=== PATIENT | female | born 1935 | race Caucasian/White ===

== ENCOUNTER 2022-07-11 15:27 | Inpatient (IN) ==
--- NOTE | 2022-07-11 15:32 | Emergency Department Note ---
Back Pain HPI General Chief Complaint: Back Pain/Injury Stated Complaint: lower back pain Time Seen by Provider: 07/11/22 15:30 Limitations: physical limitation History of Present Illness HPI Narrative: Narrative: Patient is an 87-year-old female with history of chronic low back pain and follows up with [facility] and sees Dr. Monsivais. 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 Dr. Monsivais had called the emergency department and spoke with Dr. Miller today indicating that patient is having worsening pain and would like patient evaluated in the emergency department regarding pain management. He would like to consider an MRI with the patient but is not able to obtain this until tomorro w. Patient had been recently hospitalized at [facility] at the [facility] on June 17, 2022 and discharged on June 22, 2022. Patient was admitted for acute kidney injury with creatinine initially as high as 8.54 and then reduced down to 4.07 and on day of discharge was at 3.50. She was also found to be significantly anemic and received 2 units of RBCs. She was started on Protonix for upper GI bleed. Patient had a fentanyl patch applied was used at the hospital and this was helping with her pain until last few days she reports that her pain is very severe and she rates her pain 10 out of 10 on 0-10 numerical pain scale. She has tried taking pain medication at home but has not had much relief. She denies any weakness, saddle anesthesia, or loss of control of bowel or bladder. She has had some occasional radiculopathy following the L3 and L4 dermatome on the left side. Related Data Home Medications Medication Instructions Recorded Confirmed acetaminophen 325 mg capsule 650 mg PO TID 07/11/22 07/12/22 cholecalciferol (vitamin D3) 125 125 mcg PO QDAY 07/11/22 07/12/22 mcg (5,000 unit) capsule (Dialyvite Vitamin D) fentanyl 12 mcg/hr transdermal 1 patch topical Q3D 07/11/22 07/12/22 patch furosemide 20 mg tablet 20 mg PO QDAY 07/11/22 07/11/22 levothyroxine 88 mcg tablet 88 mcg PO QDAY 07/11/22 07/12/22 oxybutynin chloride 5 mg 5 mg PO QDAY 05/08/23 05/09/23 tablet,extended release 24 hr tizanidine 2 mg tablet 2 mg PO TIDP PRN Spasms 07/11/22 07/12/22 zolpidem 5 mg tablet 5 mg PO HSP PRN Sleep 07/11/22 07/12/22 Previous Rx's Medication Instructions Recorded methocarbamol 500 mg tablet 500 mg PO .Q4-6 hr PRN muscle 07/12/22 spasm #40 tabs Allergies Allergy/AdvReac Type Severity Reaction Status Date / Time Sulfa (Sulfonamide Allergy Unknown Hives Verified 07/11/22 20:39 Antibiotics) Calcitonin [From Miacalcin] AdvReac Unknown Unknown Verified 07/11/22 20:39 hydrocodone AdvReac Unknown Unknown Verified 07/11/22 20:39 methocarbamol [From Robaxin] AdvReac Unknown Unknown Verified 07/11/22 20:39 Review of Systems ROS ROS Narrative: Narrative: All systems ED: reviewed and negative except as stated. PFS Narrative Patient History Narrative: Narrative: Medical/Surgical/Family History All Active Problems (Updated 07/12/22 @ 17:59 by Byron Irvin DNP) Age-related osteoporosis with current pathological fracture (Chronic) Other low back pain (Chronic) Pain in thoracic spine (Chronic) Radiculopathy, lumbar region (Chronic) Radiculopathy, thoracic region (Chronic) Medical History (Updated 07/12/22 @ 17:59 by Byron Irvin DNP) Age-related osteoporosis with current pathological fracture Other low back pain Pain in thoracic spine Radiculopathy, lumbar region Radiculopathy, thoracic region Surgical History (Updated 03/17/21 @ 09:14 by Sruthi Lanier) History of surgery 10/22 Vertebroplasty T10, T11 w/sed 10/11/1809/21 TESI #1 T8-9 w/sed 09/24/1809/21 LESI #1 L3-4 w/sed 09/05/1809/21 Vertebroplasty T9 w/sed 09/05/18 Family History (Updated 03/17/21 @ 09:14 by Sruthi Lanier) Other No pertinent family history Exam Narrative Narrative: Narrative: General Limitations: physical limitation General appearance: Present alert and grimacing Head Head: Present normal inspection Eye Eye: Present normal appearance; Absent scleral icterus ENT ENT: Present mucous membranes moist Neck Neck: Absent lymphadenopathy Chest Chest: Present symmetric chest wall rise Respiratory Respiratory: Present normal lung sounds bilaterally; Absent respiratory distress, rales/crackles or accessory muscle use Cardiovascular Cardiovascular: Present regular rate, normal rhythm and normal heart sounds Extremities Extremities: Present normal inspection, full ROM and normal capillary refill; Absent cyanosis Back Back: Present other (Tenderness with palpation of lumbar spine from L2-L4 area.); Absent rashes Neurological Neurological: Present alert, oriented X3 and CN II-XII intact; Absent motor sensory deficit Skin Skin: Present warm (WNL), dry and normal color Course Vital Signs Vital signs: Vital Signs Temperature 97.2 F 07/11/22 15:31 Pulse Rate 88 07/11/22 15:31 Respiratory Rate 16 07/11/22 15:31 Blood Pressure 158/66 07/11/22 15:31 Pulse Oximetry (%) 99 07/11/22 15:31 Oxygen Delivery Method Room Air 07/11/22 15:31 Temperature 97.5 F 07/12/22 12:55 Pulse Rate 67 07/12/22 12:55 Respiratory Rate 18 07/12/22 12:55 Blood Pressure 113/74 07/12/22 12:55 Pulse Oximetry (%) 94 07/12/22 12:55 Oxygen Delivery Method Room Air 07/12/22 12:55 MDM MDM Narrative Medical decision making narrative: Narrative: Patient is an 87-year-old female who came into the emergency department today for pain management of multiple compression fractures and has been having intractable pain. Today she received IV Tylenol, and IV fentanyl for pain management. Was able to speak with Dr. Monsivais today and he would plan on ta rosita the patient to the OR tomorrow for vertebroplasty pending MRI. MRI was ordered today for this patient given her intractable pain and history of multiple compression fracture. Patient's MRI shows: IMPRESSION: 1. Mild acute L3 compression fracture with 20% loss vertebral height. Chronic compression fractures at T11 T12 L1 and L2 L4 L5 and are unchanged. 2. Scattered low signal foci in the vertebral bodies which are new since 2021. These could represent metastases or multiple myeloma. Please correlate with SPEP UPEP and consider bone scan 3. Multilevel degeneration resulting in central canal, lateral recess IV foraminal narrowing without nerve root impingement. I was able to speak with Dr. Cortes today who is on today for hospitalist. He agreed to accept patient for hospital admission for pain management and observation. Patient was given 2 doses of IV fentanyl and 1000 mg of IV acetaminophen for pain management today. This helped reduce her pain to a 5 out of 10, but patient's pain is very excruciating with any mobility, movement, or ambulation. I feel this patient would benefit from hospital admission for pain management control and could also follow-up early in the morning with Dr. Monsivais for further evaluation of patient's compression fracture. Lab Data Lab results reviewed: Yes I reviewed the patient's lab results. 07/12/22 05:31 07/12/22 05:31 Labs: Lab Results 07/11/22 07/11/22 Range/Units 17:38 17:41 WBC 10.2 (4.5-11.0) K/mcL RBC 3.45 L (3.59-5.38) M/mcL Hgb 10.4 L (11.2-15.7) g/dL Hct 31.9 L (34.1-44.9) % POC Hct 30.0 L (36-48) MCV 92.5 (80.0-100.0) fL MCH 30.1 (26.0-34.0) pg MCHC 32.6 (31.0-36.0) g/dL RDW 15.5 H (11.5-14.5) % Plt Count 101 L (140-440) K/mcL MPV 10.6 (8.8-12.5) fL Immature Gran % (Auto) 6.2 H (0.0-0.5) % Neut % (Auto) 59.8 (38.0-78.0) % Lymph % (Auto) 19.5 (15.5-49.0) % [place] % (Auto) 14.0 H (1.0-12.0) % Eos % (Auto) 0.3 (0.0-7.0) % Baso % (Auto) 0.2 (0.0-2.0) % Lymph # (Auto) 1.98 (1.50-4.80) K/mcL [place] # (Auto) 1.42 H (0.10-0.90) K/mcL Eos # (Auto) 0.03 (0.00-0.70) K/mcL Baso # (Auto) 0.02 (0.00-0.30) K/mcL Immature Gran # 0.63 H (0.00-0.05) K/mcl Absolute Neutrophils 6.08 (1.80-8.00) K/mcL POC Sodium 138 (133-145) POC Potassium 3.3 (3.3-5.1) POC Chloride 97 (96-108) POC Total CO2 27.0 (22-30) POC BUN 52 H (6-20) POC Creatinine 1.8 H (0.6-1.2) POC Glucose 107 H (70-105) POC WB Ioniz Calcium 1.29 (1.16-1.32) Radiology Data Radiology results reviewed: Yes I reviewed the patient's radiology results. Radiology results narrative: Ordering Physician:Byron Irvin DNP Date of Service:07/11/22 Procedure(s):MR lumbar spine wo con CLINICAL INFORMATION: Low back and left radicular pain. History of vertebroplasty COMPARISON: Lumbar MRI 09/03/2018 and 03/30/2021 TECHNIQUE: Sagittal T1 FLAIR, STIR, fast spin echo T2, axial T2 weighted images were acquired. 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 Mild acute L3 compression fracture with edema throughout the vertebral body 20% loss of height since the previous exam. Moderate chronic T11, mild chronic T12, minimal chronic L1, mild chronic compression fractures again noted. Leg. There are scattered low-attenuation foci throughout the lumbar vertebral bodies ranging up to 8 mm in the anterior L2 vertebral body. These were not seen on the 2019 exam could represent metastases or multiple myeloma. Conus medullaris ends at T12 homogeneous signal. Cauda equina roots are normal. No significant soft tissue abnormalities. The T12-L1 disc level is normal. At L1-2 mild broad disc protrusion with left-sided asymmetry facet arthropathy results in mild central canal and moderate left IV foraminal narrowing. There is exiting left L1 nerve root impingement. At L2-3, mild broad disc protrusion and facet arthropathy result in moderate central canal and moderate bilateral IV foraminal narrowing. There is exiting L2 nerve root impingement At L3-4, moderate broad disc protrusion facet arthropathy result in severe central canal right lateral recess and right IV foraminal narrowing. There is moderate left lateral recess and left IV foraminal narrowing. There is impingement of the exiting L3 and descending L4 nerve roots. This has worsened At L4-5, mild broad disc protrusion associated spurring and facet arthropathy result in moderate bilateral IV foraminal narrowing at mild central canal narrowing. This is progressed At L5-S1 clinical mild broad disc protrusion facet arthropathy result in moderate right and mild left IV foraminal narrowing with exiting right L5 nerve root impingement. IMPRESSION: 1. Mild acute L3 compression fracture with 20% loss vertebral height. Chronic compression fractures at T11 T12 L1 and L2 L4 L5 and are unchanged. 2. Scattered low signal foci in the vertebral bodies which are new since 2021. These could represent metastases or multiple myeloma. Please correlate with SPEP UPEP and consider bone scan 3. Multilevel degeneration resulting in central canal, lateral recess IV foraminal narrowing without nerve root impingement. Interpreted and Authenticated by: David Vazquez 07/11/22 Discharge Plan Patient/Caregiver Discharge Instructions Pt seen by POCKET BUILDER/PA only: No Clinical Impression: Other low back pain Activity: increase activity as tolerated Patient Disposition: Xfer As Outpt/Obs ([facility]) Discharge Date/Time: 07/11/22 20:08
[2022-07-11] MEDS ORDERED: fentaNYL 100 MCG/2 ML VIAL IV PRN ×2 (16:09→16:41)
[2022-07-11] MEDS ORDERED: ACETAMINOPHEN 1,000 MG/100 ML BAG IV ONE (16:51)
--- NOTE | 2022-07-11 17:38 | Magnetic Resonance Report ---
CLINICAL INFORMATION: Low back and left radicular pain. History of vertebroplasty COMPARISON: Lumbar MRI 09/03/2018 and 03/30/2021 TECHNIQUE: Sagittal T1 FLAIR, STIR, fast spin echo T2, axial T2 weighted images were acquired. 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 Mild acute L3 compression fracture with edema throughout the vertebral body 20% loss of height since the previous exam. Moderate chronic T11, mild chronic T12, minimal chronic L1, mild chronic compression fractures again noted. Leg. There are scattered low-attenuation foci throughout the lumbar vertebral bodies ranging up to 8 mm in the anterior L2 vertebral body. These were not seen on the 2019 exam could represent metastases or multiple myeloma. Conus medullaris ends at T12 homogeneous signal. Cauda equina roots are normal. No significant soft tissue abnormalities. The T12-L1 disc level is normal. At L1-2 mild broad disc protrusion with left-sided asymmetry facet arthropathy results in mild central canal and moderate left IV foraminal narrowing. There is exiting left L1 nerve root impingement. At L2-3, mild broad disc protrusion and facet arthropathy result in moderate central canal and moderate bilateral IV foraminal narrowing. There is exiting L2 nerve root impingement At L3-4, moderate broad disc protrusion facet arthropathy result in severe central canal right lateral recess and right IV foraminal narrowing. There is moderate left lateral recess and left IV foraminal narrowing. There is impingement of the exiting L3 and descending L4 nerve roots. This has worsened At L4-5, mild broad disc protrusion associated spurring and facet arthropathy result in moderate bilateral IV foraminal narrowing at mild central canal narrowing. This is progressed At L5-S1 clinical mild broad disc protrusion facet arthropathy result in moderate right and mild left IV foraminal narrowing with exiting right L5 nerve root impingement. IMPRESSION: 1. Mild acute L3 compression fracture with 20% loss vertebral height. Chronic compression fractures at T11 T12 L1 and L2 L4 L5 and are unchanged. 2. Scattered low signal foci in the vertebral bodies which are new since 2021. These could represent metastases or multiple myeloma. Please correlate with SPEP UPEP and consider bone scan 3. Multilevel degeneration resulting in central canal, lateral recess IV foraminal narrowing without nerve root impingement. Interpreted and Authenticated by: David Vazquez 07/11/22
[2022-07-11 17:44] LABS: POC Calcium, Ionized 1.29 (1.16-1.32); POC Creatinine 1.8 (0.6-1.2); POC Potassium 3.3 (3.3-5.1)
[2022-07-11 18:35] LABS: Basophils # (Auto) 0.02 K/mcL (0.00-0.30); Basophils % (Auto) 0.2 % (0.0-2.0); Eosinophils # (Auto) 0.03 K/mcL (0.00-0.70); Eosinophils % (Auto) 0.3 % (0.0-7.0); Hematocrit 31.9 % (34.1-44.9); Hemoglobin 10.4 g/dL (11.2-15.7); Lymphocytes # (Auto) 1.98 K/mcL (1.50-4.80); Lymphocytes % (Auto) 19.5 % (15.5-49.0); Mean Cell Volume 92.5 fL (80.0-100.0); Mean Corpuscular HGB Conc 32.6 g/dL (31.0-36.0); Mean Platelet Volume 10.6 fL (8.8-12.5); Monocytes # (Auto) 1.42 K/mcL (0.10-0.90); Neutrophils % (Auto) 59.8 % (38.0-78.0); Platelet Count 101 K/mcL (140-440); RBC 3.45 M/mcL (3.59-5.38); Red Cell Distribution Width 15.5 % (11.5-14.5); WBC 10.2 K/mcL (4.5-11.0)
--- NOTE | 2022-07-11 19:45 | Internal Med History&Physical ---
HPI History of Present Illness Patient information: Note initiated : 07/11/22 at 7:43 pm Service Date, if different from initiated Date: [] Patient: Audrey Canales 87 y/o F admitted on for lower back pain. Chief Complaint: [] History of present illness: Ms. Canales is a 87 year old female with a history of osteoporosis, multiple vertebral compression fractures, chronic back pain, hypothyroidism, renal failure who was sent to the emergency department today by Dr. Monsivais for urgent evaluation of the patient's back pain. An MRI of the patient's lumbar spine without contrast showed an acute L3 compression fracture with 20% loss of vertebral height as well as chronic compression fractures at T11, T12, L1, L2, L4 and L5 that were unchanged. There was scattered low signal foci in the vertebral bodies which were new since 2021, radiology felt these could represent metastases or multiple myeloma. Per report from the ED provider, Dr. Monsivais is planning for a vertebroplasty tomorrow. Additionally, the patient was recently hospitalized at [facility] in [facility] where she was found to have an acute kidney injury. The patient was also noted to be anemic and she received 2 units of red blood cells. At that time, the patient had a fentanyl patch applied, she said it worked for a while but later became less effective at controlling her pain. In the ED, the patient had received fentanyl IV and appeared comfortable when I spoke to her. Review of systems Constitutional: no fever, fatigue, or weight loss Eyes: no vision changes or pain Cardiovascular: no chest pain, no palpitations Respiratory: no cough or dyspnea Gastrointestinal: no abdominal pain, no nausea, vomiting, or diarrhea Genitourinary: no dysuria or difficulty voiding Musculoskeletal: Positive for back pain Neurological: no focal weakness or numbness Physical exam Head: Atraumatic, normal inspection. Eyes: normal appearance, no scleral icterus. Neck: full ROM Respiratory: no respiratory distress. Cardiovascular: normal rate and rhythm, S1, S2. GI/Abdominal: soft, nontender, no guarding. Extremities: full range of motion, nontender. Neurological: CN II-XII intact, intact motor, intact sensation. Psychiatric: normal mood. Skin: warm, normal color PFSH PFSH All Active Problems (Updated 03/17/21 @ 09:14 by Sruthi Lanier) Age-related osteoporosis with current pathological fracture (Chronic) Other low back pain (Chronic) Pain in thoracic spine (Chronic) Radiculopathy, lumbar region (Chronic) Radiculopathy, thoracic region (Chronic) Medical History (Updated 03/17/21 @ 09:14 by Sruthi Lanier) Age-related osteoporosis with current pathological fracture Other low back pain Pain in thoracic spine Radiculopathy, lumbar region Radiculopathy, thoracic region Surgical History (Updated 03/17/21 @ 09:14 by Sruthi Lanier) History of surgery 10/22 Vertebroplasty T10, T11 w/sed 10/11/1809/21 TESI #1 T8-9 w/sed 09/24/1809/21 LESI #1 L3-4 w/sed 09/05/1809/21 Vertebroplasty T9 w/sed 09/05/18 Family History (Updated 03/17/21 @ 09:14 by Sruthi Lanier) Other No pertinent family history MEDS/ALLERGIES Home Medications and Allergies Home Medications Medication Instructions Recorded Confirmed Type levothyroxine 100 mcg tablet 100 mcg PO QDAY 03/18/21 07/11/22 History acetaminophen 500 mg tablet 500 mg PO Q6H PRN 07/11/22 07/11/22 History (Tylenol Extra Strength) furosemide 20 mg tablet 20 mg PO QDAY 07/11/22 07/11/22 History Allergies Allergy/AdvReac Type Severity Reaction Status Date / Time Sulfa (Sulfonamide Allergy Unknown Unknown Verified 07/11/22 15:49 Antibiotics) EXAM Constitutional Vitals: Temp Pulse Resp BP Pulse Ox O2 Del Method 97.2 F 62 16 115/48 99 Room Air 07/11/22 15:31 07/11/22 19:01 07/11/22 15:31 07/11/22 19:01 07/11/22 15:31 07/11/22 15:31 DATA Data Completed and Pending Labs: Labs from last 24 hours 07/11/22 07/11/22 17:41 17:38 WBC 10.2 RBC 3.45 L Hgb 10.4 L Hct 31.9 L POC Hct 30.0 L MCV 92.5 MCH 30.1 MCHC 32.6 RDW 15.5 H Plt Count 101 L MPV 10.6 Immature Gran % (Auto) 6.2 H Neut % (Auto) 59.8 Lymph % (Auto) 19.5 [place] % (Auto) 14.0 H Eos % (Auto) 0.3 Baso % (Auto) 0.2 Lymph # (Auto) 1.98 [place] # (Auto) 1.42 H Eos # (Auto) 0.03 Baso # (Auto) 0.02 Immature Gran # 0.63 H Absolute Neutrophils 6.08 POC Sodium 138 POC Potassium 3.3 POC Chloride 97 POC Total CO2 27.0 POC BUN 52 H POC Creatinine 1.8 H POC Glucose 107 H POC WB Ioniz Calcium 1.29 A/P Narrative A/P Narrative: Assessment: 87-year-old female with a history of osteoporosis, multiple vertebral compression fractures, chronic back pain, hypothyroidism, renal failure admitted for intractable back pain secondary to an acute L3 vertebral compression fracture. MRI lumbar spine showed scattered foci in the imaged vertebrae concerning for metastasis or multiple myeloma. #Acute L3 vertebral compression fracture causing intractable back pain #Concern for vertebral metastasis versus myeloma #Elevated creatinine reflecting probable chronic kidney disease #Normocytic anemia #History of multiple vertebral compression fractures #Osteoporosis #Hypothyroidism Plan: -Scheduled Tylenol, oxycodone as needed, low-dose IV Dilaudid as needed. -SPEP, free light chains with immunofixation. -X-ray bone survey to evaluate for lytic lesions. -IV fluid, follow renal function. -Home medication reconciliation. -Regular diet. -Dr. Monsivais planning for vertebroplasty tomorrow. Time Spent With Patient Time: Total time spent is greater than 50% in coordination of care (as documented) at patient's floor/unit and/or counseling patient:
[2022-07-11] MEDS ORDERED: HYDROmorphone 0.5 MG/0.5 ML SYRINGE IV PRN (20:16)
[2022-07-11] MEDS ORDERED: ONDANSETRON 4 MG/2 ML VIAL IV PRN (20:16)
[2022-07-11] MEDS ORDERED: 0.9 % SODIUM CHLORIDE 1,000 ML IV SCH (20:16)
[2022-07-11] MEDS ORDERED: oxyCODONE IR 5 MG TABLET PO PRN (20:16)
[2022-07-11] MEDS ORDERED: SENNOSIDES 1 TABLET PO SCH (21:00)
[2022-07-11] MEDS: 0.9 % SODIUM CHLORIDE 10 ML SYRINGE IV SCH (21:01)
[2022-07-11] MEDS ORDERED: ZOLPIDEM 5 MG TABLET PO PRN (21:03)
[2022-07-11] MEDS ORDERED: tiZANidine 4 MG TABLET PO PRN (21:16)
[2022-07-11] MEDS: DOCUSATE SODIUM 100 MG CAPSULE PO SCH (23:05)
[2022-07-12] MEDS: ACETAMINOPHEN 1,000 MG/100 ML BAG IV SCH ×2 (02:47→10:54)
[2022-07-12 06:23] LABS: Basophils # (Auto) 0.02 K/mcL (0.00-0.30); Basophils % (Auto) 0.2 % (0.0-2.0); Eosinophils # (Auto) 0.02 K/mcL (0.00-0.70); Eosinophils % (Auto) 0.2 % (0.0-7.0); Hematocrit 29.2 % (34.1-44.9); Hemoglobin 9.6 g/dL (11.2-15.7); Lymphocytes # (Auto) 2.12 K/mcL (1.50-4.80); Lymphocytes % (Auto) 22.5 % (15.5-49.0); Mean Cell Volume 93.9 fL (80.0-100.0); Mean Corpuscular HGB Conc 32.9 g/dL (31.0-36.0); Mean Platelet Volume 10.4 fL (8.8-12.5); Monocytes # (Auto) 1.27 K/mcL (0.10-0.90); Monocytes % (Auto) 13.5 % (1.0-12.0); Neutrophils % (Auto) 58.6 % (38.0-78.0); Platelet Count 98 K/mcL (140-440); RBC 3.11 M/mcL (3.59-5.38); Red Cell Distribution Width 15.7 % (11.5-14.5); WBC 9.4 K/mcL (4.5-11.0)
[2022-07-12] MEDS ORDERED: HYDROmorphone 0.5 MG/0.5 ML SYRINGE IV PRN (06:37)
[2022-07-12 06:46] LABS: ALT/SGPT 6 U/L (<40); AST/SGOT 13 U/L (<32); Albumin 3.5 gm/dL (3.2-5.2); Albumin/Globulin Ratio 2.2 (1.0-2.3); Alkaline Phosphatase 59 U/L (39-117); Bilirubin,Direct 0.3 mg/dL (<0.3); Bilirubin,Total 1.4 mg/dL (0.1-1.0); Blood Urea Nitrogen 54 mg/dL (8-23); Calcium 9.3 mg/dL (8.6-10.4); Carbon Dioxide 26 mmol/L (22-30); Chloride 99 mmol/L (96-108); Globulin 1.6 gm/dL (2.2-3.7); Glomerular Filtration Rate 33; Glucose 99 mg/dL (70-105); Lactate Dehydrogenase 169 U/L (135-225); Phosphorous 3.8 mg/dL (2.5-4.5); Triglycerides 127 mg/dL (<150); Uric Acid 11.4 mg/dL (2.5-8.0)
[2022-07-12] MEDS ORDERED: LEVOTHYROXINE 88 MCG TABLET PO SCH (07:30)
[2022-07-12] MEDS: 0.9 % SODIUM CHLORIDE 10 ML SYRINGE IV SCH (07:52)
[2022-07-12] MEDS: DOCUSATE SODIUM 100 MG CAPSULE PO SCH (07:52)
[2022-07-12] MEDS ORDERED: MAGNESIUM SULFATE 2 GM/50 ML BAG IV SCH (08:45)
[2022-07-12] MEDS ORDERED: OXYBUTYNIN CHLORIDE 5 MG TAB.XL.24H PO SCH (09:00)
[2022-07-12 10:19] LABS: Appearance,Urine HAZY (Clear); Bilirubin,Urine Negative (Negative); Color,Urine YELLOW; Culture Indicated,Urine yes; Glucose,Urine (UA) Negative (Negative); Ketones,Urine Negative (Negative); Leukocyte Esterase,Urine Negative /uL (Negative); Mucus,Urine FEW /hpf; Nitrate,Urine Negative (Negative); Protein,Urine 30 mg/dL (Negative); Specific Gravity,Urine 1.017 (1.000-1.035); Urine Blood Negative (Negative); Urine Hyaline Cast 3 /lph (0-2); Urine RBC 1 /hpf (0-3); Urine Squamous Epithelial Cell < 1 /hpf (0-4); Urine Transitional Epi Cells < 1 /hpf (0-2); Urine WBC 19 /hpf (0-4); Urobilinogen,Urine Negative
--- NOTE | 2022-07-12 11:29 | Discharge Summary ---
Discharge Provider Provider IMPORTANT FOLLOW-UP INFORMATION FOR PCP: Patient information: Note initiated : 07/12/22 at 11:26 am Service Date, if different from initiated Date: [] Patient: Audrey Canales 87 y/o F admitted on 07/11/22 for lower back pain- Intractable Back Pain. Chief Complaint: [] Date of admission: 07/11/22 20:08 Discharge date: 07/12/22 Primary care physician: Beto Guillermo Consults: 07/11/22 Consult to Physician [CONS] Stat Comment: Consulting Provider: Clive Cortes Reason For Exam: Physician to Consult COURSE Hospital Course Hospital course: Ms. Canales is a 87 year old female with a history of osteoporosis, multiple vertebral compression fractures, chronic back pain, hypothyroidism, renal failure who was sent to the emergency department today by Dr. Monsivais for urgent evaluation of the patient's back pain. An MRI of the patient's lumbar spine without contrast showed an acute L3 compression fracture with 20% loss of vertebral height as well as chronic compression fractures at T11, T12, L1, L2, L4 and L5 that were unchanged. There was scattered low signal foci in the vertebral bodies which were new since 2021, radiology felt these could represent metastases or multiple myeloma. Per report from the ED provider, Dr. Monsivais is planning for a vertebroplasty tomorrow. Additionally, the patient was recently hospitalized at [facility] in [facility] where she was found to have an acute kidney injury. The patient was also noted to be anemic and she received 2 units of red blood cells. At that time, the patient had a fentanyl patch applied, she said it worked for a while but later became less effective at controlling her pain. In the ED, the patient had received fentanyl IV and appeared comfortable when I spoke to her. 07/12 Vitals stable overnight, pain well controlled on scheduled IV acetaminophen. Discussed a back brace however the patient declined saying she has not tolerated them in the past. Obtained serum protein electrophoresis, free light chain electrophoresis to further evaluate the scattered foci in the vertebral bodies noted on MRI scan, results pending. Urinalysis showed some abnormal protein, evaded WBC. Patient requested to discharge so that she could have the procedure done at the pain clinic. I explained to her that her pain is fairly well controlled in the hospital therefore a vertebroplasty is not necessarily indicated at this point. A vertebroplasty might actually make her pain worse and is associated with procedural risks. The patient understands but says she would like to have a vertebroplasty as it has provided pain relief in the past. Discussed with the patient's grandson at bedside who is also her caregiver, he is in agreement with discharge. Discharge the patient to home, she will have the vertebroplasty soon after discharge then go home with family. Discussed with case management, unfortunately the patient lives in the location where home health services are not available. Patient will follow-up with her primary care provider, I recommend following up on the SPEP and free light chain analysis results and considering additional imaging if positive to work-up myeloma. If negative, would still consider additional imaging as the scattered foci in the vertebrae are suspicious for either myeloma or a metastatic malignancy. Physical exam Head: Atraumatic, normal inspection. Eyes: normal appearance, no scleral icterus. Neck: full ROM Respiratory: no respiratory distress. Cardiovascular: normal rate and rhythm, S1, S2. GI/Abdominal: soft, nontender, no guarding. Extremities: full range of motion, nontender. Neurological: CN II-XII intact, intact motor, intact sensation. Psychiatric: normal mood. Skin: warm, normal color Discharge diagnosis: Acute L3 vertebral compression fracture Time Spent with Patient Time attestation: Total time spent providing and/or coordinating discharge services: Time spent: Greater than 30 minutes EXAM Constitutional Vitals: Temp Pulse Resp BP Pulse Ox O2 Del Method 97.4 F 76 16 118/52 98 Room Air 07/12/22 07:40 07/12/22 07:40 07/12/22 07:40 07/12/22 07:40 07/12/22 07:40 07/12/22 07:40 Discharge Data Data Completed and Pending Labs on day of discharge: Labs from last 24 hours 07/12/22 07/12/22 07/12/22 09:25 05:31 05:31 WBC 9.4 RBC 3.11 L Hgb 9.6 L Hct 29.2 L POC Hct MCV 93.9 MCH 30.9 MCHC 32.9 RDW 15.7 H Plt Count 98 L MPV 10.4 Immature Gran % (Auto) 5.0 H Neut % (Auto) 58.6 Lymph % (Auto) 22.5 [place] % (Auto) 13.5 H Eos % (Auto) 0.2 Baso % (Auto) 0.2 Lymph # (Auto) 2.12 [place] # (Auto) 1.27 H Eos # (Auto) 0.02 Baso # (Auto) 0.02 Immature Gran # 0.47 H Absolute Neutrophils 5.51 POC Sodium Sodium 136 POC Potassium Potassium 3.8 POC Chloride Chloride 99 Carbon Dioxide 26 POC Total CO2 Anion Gap 11.0 POC BUN BUN 54 H Creatinine 1.4 H POC Creatinine GFR Calculation 33 Glucose 99 POC Glucose Uric Acid 11.4 H Calcium 9.3 POC WB Ioniz Calcium Phosphorus 3.8 Magnesium 1.4 L Total Bilirubin 1.4 H Direct Bilirubin 0.3 H GGT 16 AST 13 ALT 6 Alkaline Phosphatase 59 Lactate Dehydrogenase 169 Total Protein 5.1 L Total Protein (PEP) Albumin 3.5 Albumin (PEP) Globulin 1.6 L Globulin (PEP) Albumin/Globulin Ratio 2.2 Albumin/Globulin (PEP) Kqxky-6-Rrhattwgv Adxgw-1-Odrxhykvi Beta Globulins Gamma Globulins PEP Interpretation Triglycerides 127 Urine Color Yellow Urine Appearance Hazy A Urine pH 5.0 Ur Specific [place] 1.017 Urine Protein 30 A Urine Glucose (UA) Negative Urine Ketones Negative Urine Occult Blood Negative Urine Nitrate Negative Urine Bilirubin Negative Urine Urobilinogen Negative Ur Leukocyte Esterase Negative Urine RBC 1 Urine WBC 19 H Ur Squamous Epith Cells < 1 Ur Transition Epith Cell < 1 Urine Bacteria None Hyaline Casts 3 H Urine Mucus Few A Ur Culture Indicated? yes NORY Interpretation Free [place] LC, Quant Free Lambda LC, Quant Free [place]/Lambda Ratio 07/11/22 07/11/22 07/11/22 17:41 17:38 17:38 WBC RBC Hgb Hct POC Hct 30.0 L MCV MCH MCHC RDW Plt Count MPV Immature Gran % (Auto) Neut % (Auto) Lymph % (Auto) [place] % (Auto) Eos % (Auto) Baso % (Auto) Lymph # (Auto) [place] # (Auto) Eos # (Auto) Baso # (Auto) Immature Gran # Absolute Neutrophils POC Sodium 138 Sodium POC Potassium 3.3 Potassium POC Chloride 97 Chloride Carbon Dioxide POC Total CO2 27.0 Anion Gap POC BUN 52 H BUN Creatinine POC Creatinine 1.8 H GFR Calculation Glucose POC Glucose 107 H Uric Acid Calcium POC WB Ioniz Calcium 1.29 Phosphorus Magnesium Total Bilirubin Direct Bilirubin GGT AST ALT Alkaline Phosphatase Lactate Dehydrogenase Total Protein Total Protein (PEP) Pending Albumin Albumin (PEP) Pending Globulin Globulin (PEP) Pending Albumin/Globulin Ratio Albumin/Globulin (PEP) Pending Dlqyi-3-Kqiouyirk Pending Ebnra-9-Vmnicatdh Pending Beta Globulins Pending Gamma Globulins Pending PEP Interpretation Pending Triglycerides Urine Color Urine Appearance Urine pH Ur Specific [place] Urine Protein Urine Glucose (UA) Urine Ketones Urine Occult Blood Urine Nitrate Urine Bilirubin Urine Urobilinogen Ur Leukocyte Esterase Urine RBC Urine WBC Ur Squamous Epith Cells Ur Transition Epith Cell Urine Bacteria Hyaline Casts Urine Mucus Ur Culture Indicated? NORY Interpretation Pending Free [place] LC, Quant Pending Free Lambda LC, Quant Pending Free [place]/Lambda Ratio Pending 07/11/22 17:38 WBC 10.2 RBC 3.45 L Hgb 10.4 L Hct 31.9 L POC Hct MCV 92.5 MCH 30.1 MCHC 32.6 RDW 15.5 H Plt Count 101 L MPV 10.6 Immature Gran % (Auto) 6.2 H Neut % (Auto) 59.8 Lymph % (Auto) 19.5 [place] % (Auto) 14.0 H Eos % (Auto) 0.3 Baso % (Auto) 0.2 Lymph # (Auto) 1.98 [place] # (Auto) 1.42 H Eos # (Auto) 0.03 Baso # (Auto) 0.02 Immature Gran # 0.63 H Absolute Neutrophils 6.08 POC Sodium Sodium POC Potassium Potassium POC Chloride Chloride Carbon Dioxide POC Total CO2 Anion Gap POC BUN BUN Creatinine POC Creatinine GFR Calculation Glucose POC Glucose Uric Acid Calcium POC WB Ioniz Calcium Phosphorus Magnesium Total Bilirubin Direct Bilirubin GGT AST ALT Alkaline Phosphatase Lactate Dehydrogenase Total Protein Total Protein (PEP) Albumin Albumin (PEP) Globulin Globulin (PEP) Albumin/Globulin Ratio Albumin/Globulin (PEP) Gllue-2-Iaofzitgd Jrpbk-3-[place] Beta Globulins Gamma Globulins PEP Interpretation Triglycerides Urine Color Urine Appearance Urine pH Ur Specific [place] Urine Protein Urine Glucose (UA) Urine Ketones Urine Occult Blood Urine Nitrate Urine Bilirubin Urine Urobilinogen Ur Leukocyte Esterase Urine RBC Urine WBC Ur Squamous Epith Cells Ur Transition Epith Cell Urine Bacteria Hyaline Casts Urine Mucus Ur Culture Indicated? NORY Interpretation Free [place] LC, Quant Free Lambda LC, Quant Free [place]/Lambda Ratio Discharge Plan Patient/Caregiver Discharge Instructions Activity: increase activity as tolerated Diet: Regular Diet Prescriptions: Continued furosemide 20 mg tablet 20 mg PO QDAY levothyroxine 88 mcg tablet 88 mcg PO QDAY acetaminophen 325 mg Capsule 650 mg PO TID cholecalciferol (vitamin D3) [Dialyvite Vitamin D] 125 mcg (5,000 unit) Capsule 125 mcg PO QDAY tizanidine 2 mg tablet 2 mg PO TIDP PRN (Reason: Spasms) oxybutynin chloride 5 mg tablet extended release 24hr 5 mg PO QDAY zolpidem 5 mg tablet 5 mg PO HSP PRN (Reason: Sleep) fentanyl 12 mcg/hr patch 72 hour 1 patch topical Q3D Follow Up Plan Follow up with: Beto Guillermo MD [Primary Care Provider] - Patient Disposition: Home, Self-Care Overall status at discharge: patient is progressing back to baseline Discharge Orders: Discharge Order (Routine); Ordered 07/12/22 Ordered By: Clvie MARIN VTE Deep Vein Thrombosis/Pulmonary Embolism Present on Admission: No
[2022-07-12] MEDS ORDERED: cefTRIAXone 1 GM VIAL IV SCH (11:54)
[2022-07-12] MEDS ORDERED: ACETAMINOPHEN 500 MG TABLET PO SCH (14:00)
[2022-07-14 10:03] LABS: Kappa Free Light Chains 86.15 mg/L (3.30-19.40); Lambda Free Light Chains 7.97 mg/L (5.71-26.30)
[2022-07-15 15:05] LABS: Albumin/Globulin Ratio PEP 1.5 RATIO (0.9-1.7); Alpha-2-Globulins 0.75 gm/dL (0.40-1.20); Beta Globulins 0.92 gm/dL (0.60-1.20); Gamma Globulins 0.33 gm/dL (0.50-1.70); Globulin PEP 2.2 gm/dL (2.4-3.6); Total Protein PEP 5.4 gm/dL (5.9-8.4)
== END 2022-07-12 12:55 | disposition home or self-care (01) | DRG 544 ==
LOC: ED 15:27 → MEDSUR 20:08
PROVIDERS: ADMIT Internal Medicine; ATTEND Internal Medicine